=== PATIENT | female | born 1975 | race Caucasian/White ===

== ENCOUNTER 2016-12-21 21:59 | Emergency (ER) | payer BC ==
[~2016-12-21] VITALS: Ht 160 cm; Wt 51.8 kg
[~2016-12-21 21:59] MED LIST: LORTAB 5-325 M1 EACH PO
[2016-12-21 23:44] LABS: HEMATOCRIT 42.8 % (36.0-46.0); MCH 31.4 PG (29.0-34.0); MCHC 33.6 G/DL (30.0-36.0); MCV 93.2 FL (83-99); MEAN PLAT.VOLUME 9.8 uM^3 (9.5-12.4); PLATELET COUNT 250 K/uL (156-360); RBC DIS.WIDTH-CV 12.3 % (11.8-14.6); RBC DIS.WIDTH-SD 42.3 % (39-53); RED BLOOD COUNT 4.59 M/uL (3.80-5.20); WHITE BLOOD COUNT 9.2 K/uL (4.1-10.2)
[2016-12-21 23:55] LABS: CHLORIDE 109 mEq/L (99-109); POTASSIUM 3.7 mEq/L (3.7-5.4); SODIUM 144 mEq/L (136-147)
[2016-12-21 23:56] LABS: GLUCOSE 95 mg/dL (70-99)
[2016-12-21 23:58] LABS: ANION GAP 9 MEQ/L (2-14)
[2016-12-22] LABS: GFR ESTIMATE (CALCULATED) > 59 mL/min/
[2016-12-22 00:01] LABS: UREA NITROGEN (BUN) 12 mg/dL (9-23)
[2016-12-22 00:08] LABS: QUANTITATIVE HCG < 4.0 MIU/ML
[2016-12-22 00:49] VITALS: BP 130/88
== END 2016-12-22 00:49 | disposition home or self-care (01) ==
LOC: EME 21:59 → EXP 21:59
PROVIDERS: Physician Assistant
DX: F41.9 Anxiety disorder, unspecified (principal); R00.2 Palpitations; Z87.891 Personal history of nicotine dependence
CPT/HCPCS: 71020; 80048; 84702; 85027; 93005; 99281; 99284